=== PATIENT | female | born 1950 ===

== ENCOUNTER 2017-05-31 05:50 | Day surgery (SDC) | payer MEDICARE, MEDICAID ==
[2017-05-31] VITALS (11 sets, daily range): BP systolic 108–139; BP diastolic 57–85
[~2017-05-31] VITALS: Ht 160 cm; Wt 74.4 kg
[2017-05-31] MEDS ORDERED: LISINOPRIL10 MG ORAL (06:32)
[2017-05-31] MEDS ORDERED: ATORVASTATIN CA40 MG ORAL (06:32)
[2017-05-31] MEDS ORDERED: ASPIR-LOW81 MG ORAL (06:34)
[2017-05-31] MEDS ORDERED: Lidocaine 1% 10mg/ml/Epi 0.005mg/ml 30ml vial INJ ONE (06:53)
[2017-05-31] MEDS ORDERED: Meperidine 25mg/0.5ml Inj (FOR RIGORS ONLY) IV PRN (07:15)
[2017-05-31] MEDS ORDERED: fentaNYL 100 mcg/2 mL IV PRN (07:15)
[2017-05-31] MEDS ORDERED: Metoclopramide 10mg/2ml Inj IVP PRN (07:15)
--- NOTE | 2017-05-31 07:21 | Pre-Procedure Note/Attestation ---
Pre-Procedure Note/Attestation Complete Prior to Procedure Planned Procedure: right Procedure Narrative: excision of soft tissue mass right forearm Indications for Procedure Pre-Operative Diagnosis: soft tissue mass right forearm Attestation I attest that I discussed the nature of the procedure; its benefits; risks and complications; and alternatives (and the risks and benefits of such alternatives ), prior to the procedure, with the patient (or the patient's legal tax compliance representative). I attest that, if there was a reasonable possibility of needing a blood transfusion, the patient (or the patient's legal tax compliance representative) was given the [facility] standardized written summary, pursuant to the [place] Blood Safety Act ([place] Health and Safety Code # 1645, as amended). I attest that I re-evaluated the patient just prior to the surgery and that there has been no change in the patient's H&P, except as documented below:none AUBRIE HIGUERA May 31, 2017 07:21
[2017-05-31] MEDS ORDERED: Lidocaine 1% MPF 10mg/ml 5ml ONE (07:30)
[2017-05-31] MEDS ORDERED: LR 1000ml ONE (07:30)
[2017-05-31] MEDS ORDERED: Sterile Water Irrig 1000ml IRRIG ONE (07:30)
[2017-05-31] MEDS ORDERED: Propofol 200mg/20ml IV ONE (07:30)
[2017-05-31] MEDS ORDERED: Midazolam 2mg/2ml Inj ONE (07:30)
[2017-05-31] MEDS ORDERED: fentaNYL 100 mcg/2 mL IV ONE (07:30)
[2017-05-31] MEDS ORDERED: NS Irrig 1000ml ONE (07:30)
--- NOTE | 2017-05-31 08:17 | Brief Operative Note ---
Immediate Post Operative Note Operative Note Pre-op Diagnosis: soft tissue mass right forearm Procedure: excison soft tissue mass right forearm Post-op Diagnosis: same Surgeon: michelle Anesthesiologist: Meme Hebert Anesthesia: local, MAC Specimen: yes Complications: none Condition: stable Fluids: per anesthesia Estimated Blood Loss: minimal Drains: none Implant(s) used?: No AUBRIE HIGUERA May 31, 2017 08:17
--- NOTE | 2017-05-31 10:33 | 48 Hour Post Anesthesia Eval ---
Post Anesthesia Evaluation Procedure: excision of forearm mass Date of Evaluation: May 31, 2017 Time of Evaluation: 10:32 Blood Pressure Systolic: 130 0: 57 Pulse Rate: 74 Respiratory Rate: 14 O2 Sat by Pulse Oximetry: 100 Airway: patent Nausea: No Vomiting: No If pain is > 6 Comment: 0 Hydration Status: adequate Cardiopulmonary Status: stable Mental Status/LOC: patient returned to baseline Follow-up Care/Observations: surgery Post-Anesthesia Complications: none Follow-up care needed: N/A JAE VILLALPANDO CRNA May 31, 2017 10:33
--- NOTE | 2017-05-31 10:34 | Immediate Post-Op Evaluation ---
Immediate Post-Op Evalulation Immediate Post-Op Evalulation Procedure: excision of forearm mass Date of Evaluation: May 31, 2017 Time of Evaluation: 08:05 IV Fluids: 500 Blood Pressure Systolic: 130 Blood Pressure Diastolic: 85 Pulse Rate: 74 Respiratory Rate: 14 O2 Sat by Pulse Oximetry: 100 Temperature (Fahrenheit): 97.5 Pain Score (1-10): 0 Nausea: No Vomiting: No Complications none Patient Status: awake, reacts, patent Hydration Status: adequate Drug: ancef Given Within 1 Hr of Incision: Yes Time Given: 07:30 JAE VILLALPANDO CRNA May 31, 2017 10:34
--- NOTE | 2017-05-31 10:36 | Anethesia Preoperative Eval ---
Anesthesia Pre-op PMH/ROS General Date of Evaluation: May 31, 2017 Time of Evaluation: 07:30 Anesthesiologist: iker ASA Score: ASA 2 Mallampati Score Class I : Soft palate, uvula, fauces, pillars visible Class II: Soft palate, uvula, fauces visible Class III: Soft palate, base of uvula visible Class IV: Only hard plate visible Mallampati Classification: Class II Surgeon: michelle Diagnosis: forearm mass Surgical Procedure: excision of forearm mass Anesthesia History: none Family History: no anesthesia problems Allergies: Coded Allergies: No Known Allergies (Unverified , 05/30/17) Medications: see eMAR Past Medical History Cardiovascular: Reports: HTN Pulmonary: Denies: asthma, COPD, CHILO, other Gastrointestinal/Genitourinary: Denies: GERD, CRI, ESRD, other Neurologic/Psychiatric: Denies: dementia, CVA, depression/anxiety, TIA, other Endocrine: Denies: DM, hypothyroidism, steroids, other HEENT: Denies: cataract (L), cataract (R), glaucoma, CURYUNG (L), CURYUNG (R), other Hematology/Immune: Denies: anemia, DVT, bleeding disorder, other Musculoskeletal/Integumentary: Denies: OA, RA, DJD, DDD, edema, other PSxH Narrative: lap dewey Anesthesia Pre-op Phys. Exam Physician Exam Last Vital Signs Date Time Temp Pulse Resp B/P (MAP) Pulse Ox O2 Delivery O2 Flow Rate FiO2 05/31/17 09:15 97.5 61 17 130/57 98 Room Air Constitutional: NAD Neurologic: CN 2-12 intact Cardiovascular: RRR Respiratory: CTA Gastrointestinal: S/NT/ND Airway Exam Mallampati Classification 2 Mallampati Score: Class II MO: full ROM: full Dentures: no upper, no lower Anesthesia Pre-op A/P Studies Pre-op Studies: EKG - sr Risk Assessment & Plan Plan: mac Status Change Before Surgery: No Pre-Antibiotics Drug: ancef Given Within 1 Hr of Incision: Yes Time Given: 07:30 JAE VILLALPANDO CRNA May 31, 2017 10:36
[2017-05-31] MEDS ORDERED: HYDROmorphone 1mg/ml Carpuject SUBQ PRN (13:00)
[2017-05-31] MEDS ORDERED: D5 1/2NS 1,000 ML IV SCH (13:00)
[2017-05-31] MEDS ORDERED: Norco 5mg/325mg tab ORAL PRN (13:00)
[2017-05-31] MEDS ORDERED: Tylenol #3 tab (300mg/30mg) ORAL PRN (13:00)
--- NOTE | 2017-06-01 02:00 | Operative Note - Dictated ---
DATE OF OPERATION: 05/31/2017 SURGEON: Lefty Sandoval M.D. ANESTHESIOLOGIST: Meme Awad CRNA. PREOPERATIVE DIAGNOSIS: Soft tissue mass, right forearm. POSTOPERATIVE DIAGNOSIS: Soft tissue mass, right forearm. PROCEDURE: Excision of soft tissue mass, right forearm. Indication: This is a very pleasant 66-year-old woman, seen in clinic at [place]. The patient has a soft tissue mass on the right forearm, has been growing in size and causing discomfort. On examination, she has a mass approximately 2 x 3 cm, mobile, clinically consistent with lipoma. The patient has been explained the preoperative diagnosis, indications for surgery, risks, benefits, complications, and possible differential diagnosis. She understands above and agrees to proceed. Operative Findings: Soft tissue mass, non-encapsulated consistent with lipoma. Procedure in Detail: The patient was identified in the preoperative holding area and the site was marked. She was brought to the operating room and given IV sedation by anesthesiologist, prepped and draped in usual sterile manner. Time-out was performed confirming the patient's position, procedure, anesthesia, antibiotic, and allergy status. Local infiltration of a total of 3 mL of 1% lidocaine with epinephrine. Incision was made over the mass, carried down through skin and subcutaneous tissue with careful dissection. Amorphous soft tissue mass was carefully mobilized from the surrounding tissue, excised in its entirety, and sent to pathology for examination. Bleeding was controlled with electrocautery. After making sure the sponge and needle count was correct, the subcutaneous tissue was approximated with 4-0 Vicryl and skin closed with running 4-0 Vicryl subcuticular, reinforced with Steri-Strips and dry sterile dressing. Blood loss for the entire procedure was less than 1 mL. The patient tolerated the procedure well. Lefty Sandoval M.D. DR: GATO JOB#: [id number] CC:
== END 2017-05-31 09:25 | disposition home or self-care (01) ==
LOC: SUR 05:50
DX: D17.21 Benign lipomatous neoplasm of skin and subcutaneous tissue of right arm (principal); I10 Essential (primary) hypertension; Z90.49 Acquired absence of other specified parts of digestive tract
CPT/HCPCS: 25073; J0690; J2250; J2704; J3010; J7120; 94003; 94150